=== PATIENT | female | born 1960 | race African-American/Black ===

== ENCOUNTER 2016-06-15 02:52 | Emergency (ER) | payer BC ==
[~2016-06-15] VITALS: Ht 167.6 cm; Wt 109.0 kg
[~2016-06-15 02:52] MED LIST: ATOR10TA PO; DOCU-150 PO; HYDR25TA PO
[2016-06-15 04:02] VITALS: BP 138/68
[2016-06-15 04:32] LABS: CLARITY URINE CLEAR (CLEAR); COLOR URINE YELLOW (YELLOW); GLUCOSE URINE NEGATIVE (NEGATIVE); KETONES URINE NEGATIVE (NEGATIVE); LEUKOCYTE ESTERASE URINE TRACE (NEGATIVE); NITRITE URINE NEGATIVE (NEGATIVE); OCCULT BLOOD URINE NEGATIVE (NEGATIVE); PH URINE 5.5 (4.5-8.0); PROTEIN URINE NEGATIVE (NEGATIVE); SPECIFIC GRAVITY URINE 1.012 (1.005-1.030); UROBILINOGEN URINE 0.2 E.U./dL (0.2-1.0)
[2016-06-15 06:45] LABS: BACTERIA URINE 1+; SQUAMOUS EPITHELIAL CELL URINE 1+ /lpf (RARE/1+)
[2016-06-15 06:46] LABS: RBC URINE 0-2 /hpf (0-2)
== END 2016-06-15 04:52 | disposition left against medical advice (07) ==
LOC: ER 02:55
DX: R35.0 Frequency of micturition (principal); R39.15 Urgency of urination; R68.2 Dry mouth, unspecified; R73.03 Prediabetes; I10 Essential (primary) hypertension; E78.00 Pure hypercholesterolemia, unspecified
CPT/HCPCS: 81001; 99283

== ENCOUNTER 2018-07-07 14:41 | Emergency (ER) | payer BC ==
[~2018-07-07] VITALS: Ht 172.7 cm; Wt 72.0 kg
[2018-07-07 14:44] VITALS: BP 146/71
== END 2018-07-07 17:37 | disposition home or self-care (01) ==
LOC: ER 14:41
DX: M79.605 Pain in left leg (principal); M71.20 Synovial cyst of popliteal space [Baker], unspecified knee; Z79.899 Other long term (current) drug therapy
CPT/HCPCS: 99281

== ENCOUNTER 2019-03-05 11:44 | Emergency (ER) | payer BC ==
[~2019-03-05] VITALS: Ht 167.6 cm; Wt 112.0 kg
[2019-03-05 11:56] VITALS: BP 158/82
== END 2019-03-05 16:34 | disposition left against medical advice (07) ==
LOC: ER 11:44
DX: Z53.21 Procedure and treatment not carried out due to patient leaving prior to being seen by health care provider (principal)
CPT/HCPCS: 93005